=== PATIENT | female | born 1980 | race Caucasian/White ===

== ENCOUNTER 2024-03-08 21:05 | Emergency (ER) | payer MEDICAID ==
[~2024-03-08] VITALS: Ht 160 cm; Wt 65.4 kg
[2024-03-08 21:44] VITALS: O2SAT 99
[2024-03-08 22:51] VITALS: TEMP 36.83628
[2024-03-09 00:50] LABS: BASOPHILS % 0.5 % (0.0-2.0); EOSINOPHILS % 2.2 % (0.0-5.0); HEMOGLOBIN. 9.7 g/dL (12.0-16.0); LYMPHOCYTES % 45.2 % (20.0-50.0); MEAN CORPUSCULAR HEMOGLOBIN 26.2 pg (28.0-32.0); MEAN CORPUSCULAR HGB CONC 32.2 g/dL (31.0-37.0); MEAN CORPUSCULAR VOLUME 81.3 fL (81.0-99.0); MEAN PLATELET VOLUME 7.4 fl (7.4-10.4); MONOCYTES % 4.1 % (2.0-8.0); PLATELET 401 x1000/uL (130-400); RED BLOOD CELL COUNT 3.69 mill/uL (4.2-5.4); RED CELL DISTRIBUTION WIDTH 16.8 % (11.6-14.6); WHITE BLOOD COUNT 11.3 x1000/uL (4.5-11.0)
[2024-03-09 00:57] LABS: CHLORIDE 108 mEq/L (98-107); POTASSIUM 3.3 mEq/L (3.5-5.1); SODIUM 138 mEq/L (136-145)
[2024-03-09 00:58] LABS: CARBON DIOXIDE 24 mEq/L (21-32)
[2024-03-09 00:59] LABS: CALCIUM 7.9 mg/dL (8.7-10.4)
[2024-03-09 01:03] LABS: CREATININE 0.6 mg/dL (0.6-1.0); GLUCOSE 89 mg/dL (70-105)
[2024-03-09 01:04] LABS: UREA NITROGEN BLOOD 12 mg/dL (9-23)
[2024-03-09 01:21] LABS: TROPONIN I HIGH SENSITIVITY < 4 ng/L (3.0-34)
[2024-03-09 01:57] LABS: HCG SCREEN NEGATIVE
[2024-03-09 04:07] VITALS: BP 109/56; PULSE 64; RESP 16; O2SAT 98
== END 2024-03-09 04:08 | disposition home or self-care (01) ==
LOC: ER 21:05
DX: R51.9 Headache, unspecified (principal); F41.9 Anxiety disorder, unspecified; F17.200 Nicotine dependence, unspecified, uncomplicated; R56.9 Unspecified convulsions
CPT/HCPCS: 36415; 71045; 80048; 84484; 84703; 85025; 93005; 99285

== ENCOUNTER 2024-08-20 04:02 | Emergency (ER) | payer MEDICAID ==
[~2024-08-20] VITALS: Ht 160 cm; Wt 67.0 kg
[2024-08-20 04:24] VITALS: O2SAT 100
[2024-08-20 04:25] VITALS: BP 109/60; PULSE 77; RESP 16; TEMP 36.6; O2SAT 99
== END 2024-08-20 06:38 | disposition left against medical advice (07) ==
LOC: ER 04:02
DX: F41.9 Anxiety disorder, unspecified (principal); Z53.21 Procedure and treatment not carried out due to patient leaving prior to being seen by health care provider

== ENCOUNTER 2024-09-29 18:54 | Emergency (ER) | payer MEDICAID ==
[~2024-09-29] VITALS: Ht 160 cm; Wt 63.0 kg
[2024-09-29 18:57] VITALS: O2SAT 98
[2024-09-29 19:15] VITALS: TEMP 36.9; O2SAT 97
[2024-09-29 22:28] VITALS: TEMP 98.5
[2024-09-29] MEDS: ACETAMINOPHEN 325MG TABLET PO STA (22:28)
[2024-09-29 22:29] VITALS: BP 141/44; PULSE 116; RESP 20
[2024-09-29] MEDS: KETOROLAC 30MG/ML VIAL IM STA (22:29)
[2024-09-29] MEDS ORDERED: TOPUD PO (22:31)
[2024-09-29] MEDS ORDERED: IBUP-2029 MT (22:31)
== END 2024-09-29 23:03 | disposition home or self-care (01) ==
LOC: ER 18:54
DX: M79.604 Pain in right leg (principal); E03.9 Hypothyroidism, unspecified; F10.90 Alcohol use, unspecified, uncomplicated; Y90.9 Presence of alcohol in blood, level not specified
CPT/HCPCS: 72170; 96372; 99283; J1885; Z7610 ×3

== ENCOUNTER 2025-05-09 20:44 | Emergency (ER) | payer MEDICAID ==
[~2025-05-09] VITALS: Ht 160 cm; Wt 64.0 kg
[~2025-05-09 20:44] MED LIST: IBUP-1455 MT; TOPUD PO
[2025-05-09 20:53] VITALS: O2SAT 97
[2025-05-09 21:02] VITALS: BP 143/84; PULSE 84; RESP 18; TEMP 36.8; O2SAT 100
[2025-05-09 21:50] LABS: BASOPHILS % 1.1 % (0.0-2.0); EOSINOPHILS % 1.9 % (0.0-5.0); HEMATOCRIT. 27.5 % (36.0-48.0); HEMOGLOBIN. 8.3 g/dL (12.0-16.0); LYMPHOCYTES % 34.4 % (20.0-50.0); MEAN PLATELET VOLUME 6.9 fl (7.4-10.4); MONOCYTES % 2.7 % (2.0-8.0); NEUTROPHILS % 59.9 % (40.0-76.0); PLATELET 550 x1000/uL (130-400); RED BLOOD CELL COUNT 3.83 mill/uL (4.2-5.4); RED CELL DISTRIBUTION WIDTH 18.5 % (11.6-14.6)
[2025-05-09 22:05] LABS: CREATININE 0.9 mg/dL (0.6-1.0)
[2025-05-09 22:06] LABS: PROTEIN TOTAL 7.7 g/dL (6.0-8.3); TROPONIN I HIGH SENSITIVITY < 4 ng/L (3.0-34); UREA NITROGEN BLOOD 11 mg/dL (9-23)
[2025-05-09 22:07] LABS: ASPARTATE AMINOTRANSFERASE 11 IU/L (<34); HCG SCREEN NEGATIVE
[2025-05-09 22:08] LABS: BILIRUBIN DIRECT < 0.1 mg/dL (<=3.0); BILIRUBIN TOTAL 0.3 mg/dL (0.1-1.0)
[2025-05-09] MEDS ORDERED: POTASSIUM CHLORIDE 20MEQ TABLET SR PO ONE (22:15)
[2025-05-10] MEDS: POTASSIUM CHLORIDE 20MEQ TABLET SR PO NR (00:11)
== END 2025-05-10 00:56 | disposition home or self-care (01) ==
LOC: ER 20:44
DX: R55 Syncope and collapse (principal); E87.6 Hypokalemia; D64.9 Anemia, unspecified; I10 Essential (primary) hypertension; R06.02 Shortness of breath
CPT/HCPCS: 36415; 71045; 76700; 80048; 80076; 83735; 83880; 84484; 84703; 85025; 93005; 99285